=== PATIENT | female | born 2000 | race Two or more races ===

== ENCOUNTER 2018-10-23 12:25 | Emergency (ER) | payer OTHER ==
[~2018-10-23] VITALS: Ht 162.6 cm; Wt 64.8 kg
[~2018-10-23 12:25] MED LIST: DENIES
[2018-10-23 12:32] VITALS: BP 118/58; PULSE 65; RESP 16; Ht 162.6 cm; Wt 64.8 kg
--- NOTE | 2018-10-23 13:08 | ERD ---
ER Documentation Chief Complaint Chief Complaint ST x 1 week HPI This is a 18-year-old female who presents to the emergency room for evaluation of a sore throat. The patient states she is a sore throat for 1 weeks duration and describes her throat as an achy pain worse with swallowing. The patient has been taking [id number] Robitussin for her pain and cough and states that her cough is improved however she still has pain. The patient denies any sick contacts, denies any fevers or chills and came to the ER for evaluation. ROS All systems reviewed and are negative except as per history of present illness. Medications Home Meds Reported Medications [Denies] No Conflict Check 02/04/10 Allergies Allergies: Coded Allergies: No Known Allergies (Verified Allergy, Mild, 02/04/10) PMhx/Soc History of Surgery: No Anesthesia Reaction: No Hx Neurological Disorder: No Hx Respiratory Disorders: No Hx Cardiac Disorders: No Hx Psychiatric Problems: No Hx Miscellaneous Medical Probl: No Physical Exam Vitals Vital Signs Date Temp Pulse Resp B/P (MAP) Pulse Ox O2 O2 Flow FiO2 Time Delivery Rate 10/23/18 97.7 65 16 118/58 98 12:32 (78) Physical Exam Const: No acute distress Head: Atraumatic Eyes: Normal Conjunctiva ENT: Visual erythema with mildly inflamed tonsils, no exudate, no peritonsillar abscess, normal External Ears, Nose and Mouth. Neck: Full range of motion. No meningismus. Resp: Clear to auscultation bilaterally Cardio: Regular rate and rhythm, no murmurs Abd: Soft, non tender, non distended. Normal bowel sounds Skin: No petechiae or rashes Back: No midline or flank tenderness Ext: No cyanosis, or edema Neur: Awake and alert Psych: Normal Mood and Affect Procedures/MDM This 18-year-old female presents to the ER for evaluation of sore throat. On my exam the patient did have pharyngeal erythema and inflamed tonsils however there is no exudate. There is no peritonsillar abscess, she is tolerating secretions, not drooling. The patient is afebrile. I doubt strep throat. I do believe the patient has a viral pharyngitis and will be discharged home with a prescription for Tessalon Perles, and Motrin. She does states she smokes cigarettes and I advised her to discontinue smoking cigarettes as this will exacerbate her condition and his overall lack of her health. Smoking Cessation Therapy: Pt. was lectured for greater than 3 minutes on the health risks of continued smoking and the benefits of cessation. Departure Diagnosis: Primary Impression: Viral pharyngitis Additional Impression: Tobacco abuse Condition: Fair KATHRIN MARROQUIN DO Oct 23, 2018 13:08
[2018-10-23] MEDS ORDERED: BENZ-6 PO (13:09)
[2018-10-23] MEDS ORDERED: IBUP-1542 PO (13:09)
== END 2018-10-23 13:47 | disposition home or self-care (01) ==
LOC: E/R 12:25
DX: J02.9 Acute pharyngitis, unspecified (principal); Z81.2 Family history of tobacco abuse and dependence
CPT/HCPCS: 99283

== ENCOUNTER 2018-10-28 17:17 | Emergency (ER) | payer SELFPAY ==
[~2018-10-28] VITALS: Ht 162.6 cm; Wt 65.6 kg
[~2018-10-28 17:17] MED LIST changes: +BENZ-6 PO; +IBUP-1542 PO
[2018-10-28 17:20] VITALS: BP 112/55; PULSE 74; RESP 20; Ht 162.6 cm; Wt 65.6 kg
== END 2018-10-28 19:55 | disposition left against medical advice (07) ==
LOC: FTE 17:17
DX: Z53.21 Procedure and treatment not carried out due to patient leaving prior to being seen by health care provider (principal)

== ENCOUNTER 2018-11-17 19:35 | Emergency (ER) | payer OTHER ==
[~2018-11-17] VITALS: Ht 162.6 cm; Wt 66.5 kg
[2018-11-17 19:41] VITALS: Ht 162.6 cm; Wt 66.5 kg
[2018-11-17] MEDS ORDERED: ACETAMINOPHEN 500 MG TAB PO STA (20:18)
--- NOTE | 2018-11-17 20:24 | ERD ---
ER Documentation Chief Complaint Chief Complaint PELVIC PAIN X'S 1 WEEK HPI Patient is a 18 years old female with no known past medical history presenting to the clinic for dysuria, urinary urgency, urinary frequency, and bladder fullness x 1 week. Patient also reports of sensation of dislodged IUD. Patient states that she cannot feel the wire and feels pelvic pain for 1 week. Denies taking any OTC medications. Patient denies fever, chills, night sweats, vaginal discharge, constipation, diarrhea. Patient admits to taking [id number] AZO without resolution. ROS All systems reviewed and are negative except as per history of present illness. Medications Home Meds Active Scripts Ibuprofen* (Motrin*) 600 Mg Tab, 600 MG PO Q8, #30 TAB Prov:KATHRIN MARROQUIN DO 10/23/18 Benzonatate* (Tessalon Perle*) 100 Mg Capsule, 100 MG PO Q8H PRN for COUGH for 10 Days, CAP Prov:KATHRIN MARROQUIN DO 10/23/18 Reported Medications [Denies] No Conflict Check 02/04/10 Allergies Allergies: Coded Allergies: No Known Allergies (Verified Allergy, Mild, 02/04/10) PMhx/Soc Medical and Surgical Hx: pt denies Medical Hx, pt denies Surgical Hx History of Surgery: No Anesthesia Reaction: No Hx Neurological Disorder: No Hx Respiratory Disorders: No Hx Cardiac Disorders: No Hx Psychiatric Problems: No Hx Miscellaneous Medical Probl: No Hx Alcohol Use: Yes (occasional) Hx Substance Use: Yes (Marijuana) Hx Tobacco Use: No Smoking Status: Never smoker FmHx Family History: No diabetes, No coronary disease, No other Physical Exam Vitals Vital Signs Date Temp Pulse Resp B/P (MAP) Pulse Ox O2 O2 Flow FiO2 Time Delivery Rate 11/17/18 98.0 67 18 125/66 99 19:41 (85) Physical Exam Const: No acute distress Head: Atraumatic Eyes: Normal Conjunctiva Resp: Clear to auscultation bilaterally Cardio: Regular rate and rhythm, no murmurs Abd: Soft, non tender, non distended. Normal bowel sounds. Negative Parr sign, Rovsing sign, McBurney's point tenderness, guarding, rebound tenderness, Jaden sign, Stephens Echavarria sign. Skin: No petechiae or rashes Back: No midline or flank tenderness. Negative CVAT. Neur: Awake and alert Psych: Normal Mood and Affect Results 24 hrs Laboratory Tests Test 11/17/18 20:28 11/17/18 20:32 Urine Color YELLOW Urine Clarity SLIGHTLY CLOUDY Urine pH 7.0 Urine Specific [place] 1.013 Urine Ketones NEGATIVE mg/dL Urine Nitrite POSITIVE mg/dL Urine Bilirubin NEGATIVE mg/dL Urine Urobilinogen NEGATIVE mg/dL Urine Leukocyte Esterase 2+ Jagruti/ul Urine Microscopic RBC 3 /HPF Urine Microscopic WBC 65 /HPF Urine Squamous Epithelial Cells MANY /HPF Urine Bacteria MODERATE /HPF Urine Hemoglobin NEGATIVE mg/dL Urine Glucose NEGATIVE mg/dL Urine Total Protein NEGATIVE mg/dl POC Beta HCG, Qualitative NEGATIVE Current Medications Medications Dose Sig/Nissa Start Time Status Last (Trade) Ordered Route PRN Stop Time Admin Dose Reason Admin 500 mg ONCE STAT 11/17/18 DC 11/17/18 Acetaminophen PO 20:18 11/17/18 20:28 (Tylenol 20:20 Tab) Procedures/MDM Patient was seen and evaluated for pelvic pain and dysuria. Urinalysis revealed leukocyte esterase and urine WBC which is most significant with UTI. Pelvic ultrasound revealed Intrauterine device in endometrium. Small amount of free fluid in cul-de-sac which may be physiologic. Otherwise unremarkable examination. Patient denied vaginal/pelvic exam. Tylenol 500 mg p.o. administered in ED. Patient stable ready for discharge. Follow-up with PCP and [facility] DR[facility]. Patient will be discharged with Macrobid. Departure Diagnosis: Primary Impression: Acute pain in female pelvis Additional Impression: UTI (urinary tract infection) Urinary tract infection type: site unspecified Hematuria presence: without hematuria Qualified Codes: N39.0 - Urinary tract infection, site not specified Condition: Stable Patient Instructions: Understanding Urinary Tract Infections (UTIs) Referrals: [facility] Additional Instructions: Patient advised to return to the ED immediately for new or worsening symptoms. Patient advised to follow up with primary care provider in the next 24-48 hours. Patient verbalized understanding and agrees with treatment plan and course of action. If patient has no primary care they may follow up with [facility] [address] [place] [address] or [facility] [address] [place] [address] or [facility] [address] [place] [address] JOSE LUIS GO PA-C Nov 17, 2018 20:24
[2018-11-17] MEDS ORDERED: NITR-58 PO (22:18)
[2018-11-17 22:27] VITALS: BP 120/80; PULSE 64; RESP 16
== END 2018-11-17 22:27 | disposition home or self-care (01) ==
LOC: FTE 19:35
DX: N39.0 Urinary tract infection, site not specified (principal)
CPT/HCPCS: 76830; 76856; 81001; 81025; Z7502; Z7610